=== PATIENT | female | born 1950 | race African-American/Black ===

== ENCOUNTER 2016-11-26 14:42 | Observation (INO) | payer SELFPAY ==
--- NOTE | ~2016-11-26 | DS ---
Discharge Summary [facility] [address] [place]. [address] NAME: JADEN GARCÍA : 54 STATUS : DIS Dariela PAT#: [id number] AGE: 66 ADM/REG DATE : 11/26/16 MR#: [id number] REPORT SERV DATE: 11/28/16 DICTATED BY: JR. CARRILLO WILLIAM JOHN DATE: 11/27/16 REPORT STATUS : Draft TRANSCRIBED BY: DIYA DATE: 11/27/16 ADMISSION DATE: 11/26/2016 DISCHARGE DATE: 11/27/2016 DISCHARGE DIAGNOSES: Include: 1. Angioedema of the lips. 2. Chronic obstructive pulmonary disease, stable. 3. Hypertension. 4. Alcohol abuse. 5. Depressed thyroid-stimulating hormone. 6. Steroid-induced hyperglycemia. OPERATIONS/PROCEDURES AND TREATMENTS: None. DISCHARGE MEDICATIONS: Include: 1. Aspirin 81 mg orally daily. 2. Vitamin D3 2000 units daily. 3. Multivitamin one tablet orally daily. 4. Symbicort 160/4.5 two puffs twice a day. 5. Percocet 10/325 t.i.d. 6. Prilosec 20 mg daily. 7. Potassium chloride 20 mEq daily. 8. Calcium, magnesium, zinc combination tablet one daily. 9. Famotidine 20 mg orally twice a day for seven days. 10.Prednisone 20 mg orally twice a day for two days, then 20 mg daily for two days, then none. 11.Benadryl 25 mg every six hours for four days. 12.Hydrochlorothiazide 25 mg orally daily. HOSPITAL COURSE: The patient is a 66-year-old female, who presented to emergency room with lip swelling. The patient denied any new exposures, other than some type of a fish. She also loves to eat lemon and put Juan-Aid on top of them, had multiple daniella. In addition, the patient is on Norvasc. She is not on ROSANGELA inhibitor. She tried hydrogen peroxide without relief and therefore, came to the emergency room for lip swelling. Exam was remarkable for a temperature 98, heart rate 121, respiratory rate 20, blood pressure 131/92, and saturation 95% on room air. She had poor dentition and lower lips were greatly swollen, was equal bilaterally, had improved in the emergency room with IV steroids. Laboratory was overall unremarkable. The patient was admitted to the Clinical Decision Unit. She was placed on IV steroids, H2 receptor joya and H1 receptor joya and by hospital day #2, her swelling had nearly resolved. The patient had no stridor, no tongue swelling, no uvular swelling and was felt to be stable for discharge. We discussed the importance of taking her steroid taper as well as Benadryl and famotidine. The patient is followed by Melissa Pham, family nurse practitioner and will follow up in one week. Discharge Summary [facility] [address] [place] [place]. [address] NAME: JADEN GARCÍA : 54 STATUS : DIS Dariela PAT#: [id number] AGE: 66 ADM/REG DATE : 11/26/16 MR#: [id number] REPORT SERV DATE: 11/28/16 DICTATED BY: JR. CARRILLO WILLIAM JOHN DATE: 11/27/16 REPORT STATUS : Draft TRANSCRIBED BY: DIYA DATE: 11/27/16 The patient also had a thyroid-stimulating hormone checked, which was somewhat depressed at 0.221. I have ordered a free T4 to be sent to Melissa Pham to be followed up as an outpatient. The patient will be discharged home today, 11/27/2016. She will follow up with Melissa Pham in one week. Diet will be regular with a restriction for shellfish, shrimp, or iodine-containing substances. ACTIVITY: Ad tania. FOLLOWUP ISSUES: 1. Follow up on free T4. 2. May consider followup with an document preparation specialist to identify the source of this angioedema. For discharge exam and laboratory, please see daily progress note. WRomeoF/DIYA Eduar Carrillo Jr, MD / [id number] CC: Eduar Carrillo Jr, MD [place], AMY
--- NOTE | ~2016-11-26 | HP ---
History And Physical [facility] [address] [place]. [address] NAME: JADEN GARCÍA : 54 STATUS : ADM Dariela PAT#: [id number] AGE: 66 ADM/REG DATE : 11/26/16 MR#: [id number] REPORT SERV DATE: 11/26/16 DICTATED BY: KEE LOPEZ DATE: 11/26/16 REPORT STATUS : Draft TRANSCRIBED BY: DIYA DATE: 11/26/16 DATE OF ADMISSION: 11/26/2016 CHIEF COMPLAINT: Lip swelling. HISTORY OF PRESENT ILLNESS: The patient is a 66-year-old female with past medical history of alcohol abuse, tobacco use, COPD, hypertension who presents after having lip swelling that occurred last night. The patient reports that only new thing she had was variation of fish, and she had ate her lemon with Juan-Aid on top. Otherwise, no new medication changes, has been on the same dose of amlodipine for some time now. She was on ARB approximately 8 months last year but has not been on this medication since. Symptoms have been constant, moderate. No pain or radiating symptoms. No tongue swelling, just superficial lip. The patient tried hydrogen peroxide and now has what appears to be slight chemical irritation of the tongue and lip. Since the treatment in the emergency room, the upper lip has now started to decrease in size. Lower lip still fairly inflamed. There is nothing that worsened the symptoms. Symptoms are relieved with steroids, and Pepcid has been given in the emergency room with Benadryl. The patient did try Benadryl at home but this did not resolve completely symptoms. The patient has not had any shortness of breath with this issue. REVIEW OF SYSTEMS: Additional ten point review of systems negative except for that noted in the HPI. PAST MEDICAL HISTORY: Reflux, COPD, pneumonia, tobacco use, hypertension, and alcohol abuse. SURGICAL HISTORY: Hysterectomy. SOCIAL HISTORY: Smoker, approximately 5 cigarettes a day but for over 35 years alcohol dependent. Family reports as high as half bottle of vodka at times in a day but does have days of abstinence and no withdrawal at those times. No IV drugs. ALLERGIES: DENIES ANY ACUTE DRUG ALLERGIES BUT IS REPORTED TO BE ALLERGIC TO TOMATOES. FAMILY HISTORY: Hypertension. MEDICATIONS: Amlodipine, Halfprin, Symbicort, vitamin D3, multivitamin, Prilosec, oxycodone, potassium, calcium, magnesium, zinc, and multivitamin. PHYSICAL EXAMINATION: VITAL SIGNS: The patient blood pressure is 131/92, temperature 98, pulse 121, respirations 20, O2 saturations 95%. GENERAL: No acute distress. Calm, pleasant, smiling. EYES: No scleral icterus. EOMI. ENT: Nares patent. Tongue midline. Very poor dentition of lower bridge, does have lower lip swelling greater than upper lip but apparently per pictures was equally and bilaterally large, has started to improve. History And Physical [facility] [id number] [facility] [place]. [address] NAME: JADEN GARCÍA : 54 STATUS : ADM Dariela PAT#: [id number] AGE: 66 ADM/REG DATE : 11/26/16 MR#: [id number] REPORT SERV DATE: 11/26/16 DICTATED BY: KEE LOPEZ DATE: 11/26/16 REPORT STATUS : Draft TRANSCRIBED BY: DIYA DATE: 11/26/16 LUNGS: Clear to auscultation. No wheezes, no stridor. CV: Regular rate. No rubs. GI: Soft, nontender, nondistended but does have central obesity. : Deferred. MUSCULOSKELETAL: Moves all extremities but does have atrophy of extremities but symmetrical strength in hands. SKIN: Warm and dry. LYMPH: No cervical or supraclavicular lymphadenopathy. HEME: No bleeding or bruising. NEURO: Alert and oriented. No asterixis currently, pleasant. No hallucinations. PSYCH: Appropriate mood and affect. LABS: CMP grossly within normal limits except for alkaline phosphatase mildly elevated at 130. CBC; WBC count 13, H and H 13.2 and 38.6, platelets 302. ASSESSMENT AND PLAN: 1. Angioedema. 2. Chronic obstructive pulmonary disease history. 3. Hypertension. 4. Poor dentition. 5. Alcohol use abuse. 6. Tobacco use. PLAN: 1. For angioedema; steroids, H2 joya, atorvastatin, hold calcium channel joya currently, did have fish exposure likely fish related, placed as allergy along with shrimp products and tomato products. The patient has had prior similar reaction to tomatoes. I counseled on signs and symptoms of angioedema. We will monitor with treatment until improved and resolution to monitor for airway. No posterior uvula or tongue swelling noted and no stridor. 2. Chronic obstructive pulmonary disease, O2 and DuoNebs. Counseled on smoking cessation. 3. Hypertension. Discontinue amlodipine, monitor. 4. Poor dentition. Plan is to have lower teeth removed in near future. 5. Alcohol use. No signs and symptoms of acute withdrawal. We will place on detox protocol. Drinks up to half bottle of vodka a day at times. All questions answered with the patient and family. DDN/DORINDAL Kee Lopez MD / [id number] CC: History And Physical [address] [address] NAME: JADEN GARCÍA : 54 STATUS : ADM Dariela PAT#: [id number] AGE: 66 ADM/REG DATE : 11/26/16 MR#: [id number] REPORT SERV DATE: 11/26/16 DICTATED BY: KEE LOPEZ DATE: 11/26/16 REPORT STATUS : Draft TRANSCRIBED BY: MODL DATE: 11/26/16 Kee Lopez MD
[~2016-11-26 14:42] MED LIST: ADVAIR250 INH; ALBUTEROL5 INH; ASAB PO; ASABAYER PO; ASPIRIN PO; CALC PO; CLINDA150 PO; COUGH SYRUP OTC PO; COZ25 PO; DULERA 200 MCG/13 GM INH; FLORASTOR250 MG PO; GOODY'S EX-STR1 EAC1 PO; LEVAQUIN750 MG PO; MAG PO; MAGNESIUM PO; MULTI-VIT HP PO; NEUR100 PO; P20 PO; PRILO PO; PRILOSEC10 MG PO; PROAIR HFA INH; PROAIR HFA PO; PROVENT20 INH; TESS PO; THERGRANM PO; TOPXL25 PO; TOPXL50 PO; VICKS SINEX12 HR NAS; VITAMIN D1000 UNI1 PO; VITAMIN D31000 UNIT PO; ZINC PO
[2016-11-26 16:25] LABS: BASOPHILS 0.3 %; BASOPHILS ABSOLUTE 0.04 10/3/uL (0.0-0.16); EOSINOPHILS 0.5 %; EOSINOPHILS ABSOLUTE 0.06 10/3/uL (0.0-0.53); ER CBC TAT 0 Hrs 05 Mins; HEMATOCRIT 38.6 % (36.0-48.0); HEMOGLOBIN 13.2 g/dL (12.0-16.0); IMMATURE GRANULOCYTES 0.2 %; IMMATURE GRANULOCYTES ABSOLUTE 0.02 10/3/uL (0.0-0.11); LYMPHOCYTES 12.7 %; LYMPHOCYTES ABSOLUTE 1.64 10/3/uL (0.67-4.30); MEAN CORPUS HGB CONC 34.2 g/dL (32.0-36.0); MEAN CORPUSCULAR HEMOGLOB 31.9 pg (26.0-34.0); MEAN CORPUSCULAR VOLUME 93.2 fL (80-100); MEAN PLATELET VOLUME 10.4 fL (9.2-13.0); MONOCYTES 6.8 %; MONOCYTES ABSOLUTE 0.88 10/3/uL (0.21-1.20); NEUTROPHILS 79.5 %; NEUTROPHILS ABSOLUTE 10.31 10/3/uL (2.02-8.40); PLATELET COUNT 302 10/3/uL (150-400); RBC DISTRIBUTION WIDTH 13.5 % (12.0-16.0); RED CELL COUNT 4.14 10/6/uL (4.0-5.6)
[2016-11-26 16:26] LABS: MANUAL DIFF NO %
[2016-11-26 16:40] LABS: A/G RATIO 0.9 (0.7-1.9); ALBUMIN 3.7 G/DL (3.5-5.0); BUN (BLOOD UREA NITROGEN) 8 MG/DL (6-23); CALCIUM, SERUM 9.6 MG/DL (8.5-10.4); CHLORIDE, SERUM 106 MMOL/L (96-112); CO2 (CARBON DIOXIDE) 30 MMOL/L (24-34); CREATININE 0.79 MG/DL (0.55-1.02); GFR AFRICAN AMERICAN 92 ML/MIN (>=60); GFR NON AFRICAN AMERICAN 79 ML/MIN (>=60); GLOBULIN 3.9 G/DL (2.5-4.1); GLUCOSE, SERUM 96 MG/DL (60-99); POTASSIUM, SERUM 3.9 MMOL/L (3.5-5.3); SGOT(AST) 32 U/L (5-40); SGPT(ALT) 28 U/L (5-65); SODIUM, SERUM 142 MMOL/L (135-148); TOTAL BILIRUBIN 0.4 MG/DL (0-1.2); TOTAL PROTEIN 7.6 G/DL (6.0-8.5)
[2016-11-26 16:41] LABS: ALKALINE PHOSPHATASE 130 U/L (45-117)
[2016-11-26] MEDS ORDERED: NORV5 PO (17:27)
[2016-11-26] MEDS ORDERED: PERCOCET 10/3251 TAB PO (17:28)
[2016-11-26] MEDS ORDERED: KLOR-CON M2020 MEQ PO (17:28)
[2016-11-26] MEDS ORDERED: PRILO PO (17:28)
[2016-11-26] MEDS ORDERED: CALCIUM PO (17:29)
[2016-11-26] MEDS ORDERED: ZINC PO (17:29)
[2016-11-26] MEDS ORDERED: MAGNESI PO (17:29)
[2016-11-26] MEDS ORDERED: THERGRANM PO (17:29)
[2016-11-26] MEDS ORDERED: HALF81 PO (17:30)
[2016-11-26] MEDS ORDERED: VITAMIN D31000 UNIT PO (17:30)
[2016-11-26] MEDS ORDERED: SYMBICORT 160/41 INH INH (17:30)
[2016-11-27 04:27] LABS: BASOPHILS 0 %; EOSINOPHILS 0 %; HEMATOCRIT 35.1 % (36.0-48.0); IMMATURE GRANULOCYTES 0.3 %; IMMATURE GRANULOCYTES ABSOLUTE 0.04 10/3/uL (0.0-0.11); LYMPHOCYTES 8.6 %; LYMPHOCYTES ABSOLUTE 1.11 10/3/uL (0.67-4.30); MANUAL DIFF NO %; MEAN CORPUS HGB CONC 34.2 g/dL (32.0-36.0); MEAN CORPUSCULAR HEMOGLOB 31.7 pg (26.0-34.0); MEAN CORPUSCULAR VOLUME 92.6 fL (80-100); MONOCYTES 0.6 %; MONOCYTES ABSOLUTE 0.08 10/3/uL (0.21-1.20); NEUTROPHILS 90.5 %; NEUTROPHILS ABSOLUTE 11.67 10/3/uL (2.02-8.40); PLATELET COUNT 294 10/3/uL (150-400); RBC DISTRIBUTION WIDTH 13.5 % (12.0-16.0); RED CELL COUNT 3.79 10/6/uL (4.0-5.6); WHITE BLOOD CELLS 12.9 10/3/uL (4.5-10.5)
[2016-11-27 04:50] LABS: CALCIUM, SERUM 9.4 MG/DL (8.5-10.4); CHLORIDE, SERUM 107 MMOL/L (96-112); GFR AFRICAN AMERICAN 55 ML/MIN (>=60); GFR NON AFRICAN AMERICAN 48 ML/MIN (>=60); POTASSIUM, SERUM 4.1 MMOL/L (3.5-5.3); SODIUM, SERUM 141 MMOL/L (135-148)
[2016-11-27 04:52] LABS: BUN (BLOOD UREA NITROGEN) 13 MG/DL (6-23); CO2 (CARBON DIOXIDE) 24 MMOL/L (24-34); GLUCOSE, SERUM 233 MG/DL (60-99); ULTRASENSITIVE TSH 0.221 MCIU/ML (0.358-3.740)
[2016-11-27] MEDS ORDERED: PEP20 PO (09:40)
[2016-11-27] MEDS ORDERED: HYDROCHLOROT25 MG (09:41)
[2016-11-27] MEDS ORDERED: HYDROCHLOROT25 MG PO (09:42)
[2016-11-27] MEDS ORDERED: P20 PO (09:44)
[2016-11-27] MEDS ORDERED: BEN25 PO (09:54)
== END 2016-11-27 11:27 | disposition home or self-care (01) ==
LOC: ER 14:42 → CDU1 17:04 → CDU2 17:36
PROVIDERS: Emergency Medicine; Student in an Organized Health Care Education/Training Program
DX: T78.3XXA Angioneurotic edema, initial encounter (principal); J44.9 Chronic obstructive pulmonary disease, unspecified; K00.7 Teething syndrome; I10 Essential (primary) hypertension; K21.9 Gastro-esophageal reflux disease without esophagitis; R73.9 Hyperglycemia, unspecified; F17.210 Nicotine dependence, cigarettes, uncomplicated; Z90.710 Acquired absence of both cervix and uterus; Z79.899 Other long term (current) drug therapy; Z79.52 Long term (current) use of systemic steroids; Z79.82 Long term (current) use of aspirin
CPT/HCPCS: 80048; 80053; 83735; 84439; 84443; 85025; 94640; 96372; 96374; 96375; 96376; 99285; A9270-GY; G0378; J1200; J2920; J2930; J3411